=== PATIENT | female | born 1990 | race Caucasian/White ===

== ENCOUNTER 2022-05-17 00:09 | Observation (INO) | payer OTHER, SELFPAY ==
[2022-05-17] VITALS (8 sets, daily range): BP systolic 100–120; BP diastolic 66–82; PULSE 81–105; RESP 16–20; TEMP 36.4–37.7; O2SAT 93–98; BMI 25.8
--- NOTE | ~2022-05-17 | CT_ITS ---
EXAMINATION: CTA OF THE HEAD/NECK CLINICAL INFORMATION: Right-sided head and neck pain. Right face, arm, leg numbness. COMPARISON: None. TECHNIQUE: A routine non contrast head CT was performed followed by a 80 mL bolus of Omnipaque 350. Subsequent multidetector helical imaging was performed of the head and neck. Delayed post contrast imaging was also performed through the head. Multiplanar reformats and MIP were also obtained. Internal carotid artery stenoses are assessed in accordance with NASCET criteria unless otherwise indicated. This CT examination was performed using dose optimization techniques as appropriate, variously including the following: *Automated exposure control *Adjustment of mA and/or kV according to patient size (this includes techniques or standardized protocols for targeted exams where dose is matched to indication/reason for exam; i.e. extremities or head) *Use of iterative reconstruction technique DLP: 2119 mGy-cm. FINDINGS: CT HEAD: There is no evidence of acute intracranial hemorrhage or territorial infarction. No abnormal mass effect or midline shift is seen. Fowler to white matter differentiation is well preserved. No extra-axial fluid collections are identified. No suspicious leptomeningeal or parenchymal enhancement on the post-contrast images. No hydrocephalus. No significant volume loss. There is no abnormal attenuation within the brain parenchyma. The osseous structures and soft tissues are normal. The mastoid air cells and visualized portions of the paranasal sinuses are well aerated. CTA NECK: The aortic arch is of normal caliber and the origins of the great vessels are patent without evidence of significant stenosis. The cervical portion of the vertebral arteries are patent bilaterally. No luminal irregularities in the common carotid arteries and the carotid bifurcations are patent bilaterally. The cervical portion of the internal carotid arteries are of normal caliber. The laryngeal structures and pharyngeal mucosal spaces are unremarkable. The oral cavity appears normal. The parotid and submandibular glands are normal. No pathologically enlarged lymph nodes. The thyroid gland is unremarkable. The lung apices are clear without evidence of pneumothorax. Spinal alignment is maintained. CTA HEAD: The intradural portion of the vertebral arteries are of normal caliber. The basilar, superior cerebellar, and posterior communicating arteries are patent. The posterior, middle, and anterior cerebral arteries are of normal caliber without evidence of significant luminal irregularity. No definite intracranial aneurysms. CT/CT angio head neck IMPRESSION: 1. No acute vascular abnormality. No large vessel occlusion or flow-limiting stenosis. 2. No acute intracranial finding.
--- NOTE | ~2022-05-17 | MR_ITS ---
EXAMINATION: MR BRAIN WITH AND WITHOUT CONTRAST CLINICAL INFORMATION: Right neck pain, right face, arm, left leg numbness COMPARISON: CTA TECHNIQUE: MRI of the brain was obtained using routine sequences before and following administration of intravenous contrast. A total of 7.5 mL of Gadavist was administered intravenously. FINDINGS: Mildly motion degraded examination. No acute infarct. No acute intracranial hemorrhage or extra-axial fluid collection. The ventricles and sulci are normal in size and configuration without significant volume loss or hydrocephalus. White matter lesions to suggest underlying demyelinating disease. 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 No abnormal leptomeningeal enhancement. No significant mass effect or herniation pattern. Normal venous sinus and intracranial arterial flow voids. Normal appearance of the midline structures. The orbits are grossly unremarkable. Trace scattered mucosal disease throughout the paranasal sinuses. The mastoid air cells are well aerated. Normal marrow signal. MR/MR head/brain wo/w con IMPRESSION: No acute intracranial abnormality. No evidence for demyelinating disease. 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
--- NOTE | 2022-05-17 03:42 | PC.NURSE ---
Provider at bedside to evaluate pt.
--- NOTE | 2022-05-17 04:00 | ECG_ITS ---
Test Reason : WEAKNESS Blood Pressure : / mmHG Vent. Rate : 093 BPM Atrial Rate : 093 BPM P-R Int : 148 ms QRS Dur : 070 ms QT Int : 358 ms P-R-T Axes : 069 016 046 degrees QTc Int : 445 ms Sinus rhythm with Premature supraventricular complexes Possible Left atrial enlargement Low voltage QRS Borderline ECG No previous ECGs available Referred By: Kristofer Mcfarlane Electronically Signed By:ELBA CLANCY MD
--- NOTE | 2022-05-17 04:09 | ED.HA ---
HPI - Headache General Chief Complaint: Headache Stated Complaint: neck pain, right sided pain Time Seen by Provider: 05/17/22 03:41 Source: patient and family (, Raffy) Mode of arrival: ambulatory Limitations: no limitations History of Present Illness HPI Narrative: 31-year-old female who presents emergency department for evaluation of sudden onset of severe right-sided neck pain with right face numbness, right arm numbness and right leg numbness. The patient states that she was asleep. She then woke up at around 23:00 hours, set up and had a sudden onset of severe pain on the right side of her neck. She states that the right side of her face, arm and leg became numb She also states she had blurred vision in her right eye only. The neck pain was severe initial but then improved and is currently [id number].. She states that the numbness has persisted, she denies weakness. Patient states that she has been having intermittent right face, right upper extremity numbness with a tingly sensation in her right neck intermittently since August of 2021 . She was being worked up for multiple sclerosis. She states that she had negative MRIs of her head neck and spine. She had a spinal tap 2 weeks prior which was also negative. The spinal tap was complicated by a spinal headache. She states was seen at [facility] for spinal headache and was treated with Zofran, IV fluid and Toradol with no improvement her spinal headache. She was then treated with Fioricet orally and again with no improvement. She was then seen at [facility] ER and was given multiple narcotic medications IV with no improvement. She eventually had a spinal blood past which caused her spinal headaches to resolved. She states that she had no headache since the spinal blood patch. She denies headache with today symptoms. Related Data Allergies Allergy/AdvReac Type Severity Reaction Status Date / Time No Known Allergies Allergy Verified 05/17/22 01:33 Review of Systems Review of Systems: Yes all other systems are reviewed and are negative [facility] Past Medical History [facility] Narrative: Past medical history: None. Social history: She denies tobacco, alcohol and drug use. Social History Social History Advance Directives: No Advance Directives Information Provided: Yes Physical Exam Vital Signs: Vital Signs: Last Vital Signs Temp 98.2 F 05/17/22 02:36 Pulse 97 03/22/23 06:11 Resp 20 05/17/22 06:11 BP 100/66 05/17/22 06:11 Pulse Ox 98 05/17/22 06:11 O2 Del Method 05/17/22 06:11 BMI result Body Mass Index 25.8 Const: General: cooperative and no acute distress Limitations: no limitations HEENT: Head: Yes normal to inspection, Yes normocephalic and Yes atraumatic Ears: external ears normal General nose exam: Normal external nose present Face and sinus: Yes normal facial exam Mouth: Normal oral and palatal mucosa present Throat: Yes posterior oropharynx normal Eyes: General: appearance normal, both eyes and all related structures Neck: Neck: Yes normal visual inspection, Yes no lymphadenopathy, Yes trachea midline and Yes supple Chest: Chest palpation & inspection: normal inspection of the chest and normal palpation of entire chest wall Resp: Effort & Inspection: normal respiratory effort and able to speak in complete sentences Auscultation: clear to auscultation bilaterally Cardio: Rate: regular rate Rhythm: regular rhythm Heart sounds: S1 normal heart sound present, S2 normal heart sound present and no murmurs GI: Inspection: Yes normal to inspection Palpation (GI): Soft to palpation, nontender and no guarding Auscultation: normal bowel sounds : General: Yes no CVA tenderness Back/Spine/Pelvis: Back: no CVA tenderness Skin: General skin exam: no rashes or lesions noted Neuro: Other: Patient is awake, alert oriented to person place, speech is normal. Patient has no facial droop, she does have diminished light touch sensation on the right side of her face and neck compared to the left. She also has diminished light touch sensation to her right upper and lower extremity compared to the left. Patient's strength is 5/5 and symmetric. Extrem: General: Yes normal to inspection Psych: Appearance: grossly normal Speech and movement: Normal speech and movement present Affect: normal affect Attitude: cooperative Thought process: Normal thought process present Thought content: Normal thought content present NIH Stroke Scale Internal: Other (At the time of my evaluation) Level of Consciousness: Alert Level of Consciousness Questions: Answers both questions correctly Level of Consciousness Commands: Performs both tasks correctly Best Gaze: Normal Visual: No visual loss Facial Palsy: Normal Motor Arm (Right): No drift Motor Arm (Left): No drift Motor Leg (Right): No drift Motor Leg (Left): No drift Limb Ataxia: Absent Sensory: Mild to moderate sensory loss Best Language: No aphasia Dysarthia: Normal Extinction and Inattention: No abnormality Score: 1 Medications Administered Discontinued Medications Generic Name Dose Route Start Last Admin Trade Name Salvatore PRN Reason Stop Dose Admin Aspirin 162 mg 05/17/22 06:53 05/17/22 07:17 Aspirin 81 Mg Tab.Chew PO 05/17/22 06:54 162 mg ONCE STA Administration Diphenhydramine HCl 50 mg 05/17/22 03:59 05/17/22 04:27 Diphenhydramine Hcl 50 Mg/Ml Vial IVPUSH 05/17/22 04:00 50 mg ONCE STA Administration Sodium Chloride 1,000 mls @ 999 mls/hr 05/17/22 03:59 05/17/22 07:06 Ns IV 05/17/22 04:59 Infused .Q1H1M STA Infusion Iohexol 70 ml 05/17/22 05:40 05/17/22 05:40 Iohexol 350 Mg/Ml 100 Ml Infus..Btl IV 05/17/22 05:41 70 ml ONCE ONE Administration Ketorolac Tromethamine 15 mg 05/17/22 03:59 05/17/22 04:27 Ketorolac Tromethamine 15 Mg/Ml Vial IVPUSH 05/17/22 04:00 15 mg ONCE STA Administration Metoclopramide HCl 10 mg 05/17/22 03:59 05/17/22 04:27 Metoclopramide Hcl 10 Mg/2 Ml Vial IVPUSH 05/17/22 04:00 10 mg ONCE STA Administration Medical Decision Making Medical Decision Making [facility] Narrative: 31-year-old female who presents emergency department for evaluation of severe right-sided neck pain that woke her up from sleep associated with right eye blurred vision, right head, neck, upper and lower extremity numbness with no weakness. The patient has been having right face, neck and arm numbness which is been worked up for MS by her neurologist with no significant findings. Patient did have a spinal headache over the past 2 weeks which eventually resolved after she had spinal blood patch. Patient's symptoms today were not associated with the headache. Physical exam findings did reveal diminished light touch to her face, neck, right upper extremity and right lower extremity with no weakness. I did order laboratory evaluation to include CBC, CMP, PT/INR, PTT, TSH, quantitative beta-hCG, COVID, influenza, RSV, urinalysis. CT scan of the brain without IV contrast was ordered. I also ordered a CT angiogram head and neck to rule out dissection carotid arteries or retrievable blood clot. It is possible the patient may have a complex migraine therefore I ordered Benadryl 50 mg IV, Reglan 10 mg IV and Toradol 15 mg IV. She was also ordered to get normal saline IV x1 L. 0641: My interpretation of the patient's laboratory evaluation is as follows: CBC was normal. Coags were normal. CMP normal. Quantitative beta-hCG below detectable limits. TSH normal. COVID-19, influenza and RSV negative. CT brain was negative. CT angiogram of the head and neck was also unremarkable. The patient states that her symptoms did improve with the above treatment. She states that the right-sided neck pain has completely resolved, she states the numbness in her right arm and right leg has improved but is still present. At this time, I am concerned that the patient may have had a stroke verses a new TIA as the cause of her symptoms and should be admitted for further workup. I will discuss admission with the covering hospitalist. I did order aspirin 162 mg orally. 0730: I did discuss over tiger text the patient's admission with Dr. Vicente. I did order an MRI with and without contrast to rule out stroke verses multiple sclerosis. Differential Diagnosis Differential diagnosis includes was not limited to acute stroke, complex migraine, carotid dissection Consult Healthcare Provider Management of the patient was discussed with: Hospitalist Lab Data [facility] Lab Attestation statement: I reviewed the patient's lab results. Please see [facility] for discussion 05/17/22 04:22 05/17/22 04:22 Labs: Lab Results 05/17/22 05/17/22 05/17/22 Range/Units 04:22 04:22 04:22 WBC 9.3 (4.8-10.8) X10*3/uL RBC 4.94 (4.20-5.50) X10*6/uL Hgb 12.8 (12.0-16.0) g/dl Hct 39.9 (37.0-47.0) % MCV 80.8 (80.0-98.0) fL MCH 25.9 L (27.0-33.0) pg MCHC 32.1 (31.0-35.0) g/dl RDW 12.8 (11.0-16.0) % Plt Count 267 (160-400) X10*3/uL MPV 9.9 (9.4-12.3) fL Immature Gran % (Auto) 0.3 (0.0-0.4) % Neut % (Auto) 59.0 (45-73) % Lymph % (Auto) 33.8 (20-40) % [place] % (Auto) 4.9 (2-11) % Eos % (Auto) 1.7 (0-4) % Baso % (Auto) 0.3 (0-2) % Lymph # (Auto) 3.1 (1.2-4.9) X10*3/uL Marion # (Auto) 0.5 (0.1-1.2) X10*3/uL Eos # (Auto) 0.2 (0.0-0.4) X10*3/uL Baso # (Auto) 0.0 (0.0-0.2) X10*3/uL Abs Immat Gran (auto) 0.03 (0.00-0.03) X10*3/uL Absolute Neuts (auto) 5.5 (2.0-8.3) x10*3/uL Absolute Nucleated RBC 0.000 (0.0-0.012) X10*3/uL Nucleated RBC % (auto) 0.0 (0.0-0.2) /100WBC PT 11.6 (10.0-13.1) SEC INR 1.0 (0.9-1.1) APTT 31.4 (26.0-36.4) SEC Sodium 143 (135-145) mmol/L Potassium 4.1 (3.3-5.1) mmol/L Chloride 106 (96-108) mmol/L Carbon Dioxide 27 (22-29) mmol/L Anion Gap 14 (12-20) BUN 12 (9-16) mg/dL Creatinine 0.77 (0.5-1.4) mg/dL Estim Creat Clear Calc 105.9 Estimated GFR > 60 Random Glucose 98 (60-115) mg/dL Calcium 9.5 (8.4-10.2) mg/dL Total Bilirubin 0.4 (0.0-1.0) mg/dL AST 14 (5-31) U/L ALT 14 (0-31) U/L Alkaline Phosphatase 108 (39-117) U/L Total Protein 7.5 (6.5-8.0) g/dL Albumin 4.5 (3.5-5.0) g/dL Lipase 39 (8-78) U/L TSH (0.32-4.0) uIU/mL Beta HCG, Quant < 2 mIU/mL Influenza Type A (PCR) (Negative) Influenza Type B (PCR) (Negative) RSV RNA Qual (PCR) (Negative) SARS-CoV-2 RNA (RT-PCR) (Negative) 05/17/22 05/17/22 Range/Units 04:22 04:22 WBC (4.8-10.8) X10*3/uL RBC (4.20-5.50) X10*6/uL Hgb (12.0-16.0) g/dl Hct (37.0-47.0) % MCV (80.0-98.0) fL MCH (27.0-33.0) pg MCHC (31.0-35.0) g/dl RDW (11.0-16.0) % Plt Count (160-400) X10*3/uL MPV (9.4-12.3) fL Immature Gran % (Auto) (0.0-0.4) % Neut % (Auto) (45-73) % Lymph % (Auto) (20-40) % Marion % (Auto) (2-11) % Eos % (Auto) (0-4) % Baso % (Auto) (0-2) % Lymph # (Auto) (1.2-4.9) X10*3/uL Marion # (Auto) (0.1-1.2) X10*3/uL Eos # (Auto) (0.0-0.4) X10*3/uL Baso # (Auto) (0.0-0.2) X10*3/uL Abs Immat Gran (auto) (0.00-0.03) X10*3/uL Absolute Neuts (auto) (2.0-8.3) x10*3/uL Absolute Nucleated RBC (0.0-0.012) X10*3/uL Nucleated RBC % (auto) (0.0-0.2) /100WBC PT (10.0-13.1) SEC INR (0.9-1.1) APTT (26.0-36.4) SEC Sodium (135-145) mmol/L Potassium (3.3-5.1) mmol/L Chloride (96-108) mmol/L Carbon Dioxide (22-29) mmol/L Anion Gap (12-20) BUN (9-16) mg/dL Creatinine (0.5-1.4) mg/dL Estim Creat Clear Calc Estimated GFR Random Glucose (60-115) mg/dL Calcium (8.4-10.2) mg/dL Total Bilirubin (0.0-1.0) mg/dL AST (5-31) U/L ALT (0-31) U/L Alkaline Phosphatase (39-117) U/L Total Protein (6.5-8.0) g/dL Albumin (3.5-5.0) g/dL Lipase (8-78) U/L TSH 0.86 (0.32-4.0) uIU/mL Beta HCG, Quant mIU/mL Influenza Type A (PCR) NEGATIVE (Negative) Influenza Type B (PCR) NEGATIVE (Negative) RSV RNA Qual (PCR) NEGATIVE (Negative) SARS-CoV-2 RNA (RT-PCR) NEGATIVE (Negative) Independent Interpretation I performed an independent interpretation of an: EKG Interpretation: My independent interpretation of the patient's 12 EKG done at 04:25 hours is as follows: Normal sinus rhythm with occasional PAC, rate of 93, normal VA interval, QRS duration QTC interval no ST segment elevation, no ST segment depression inverted T-wave in V1. Discharge Plan Discharge Patient Disposition: Admitted As Inpatient
[2022-05-17] MEDS: diphenhydrAMINE HCL 50 MG/ML VIAL IVPUSH (04:27)
[2022-05-17] MEDS: Metoclopramide HCl 10 MG/2 ML VIAL IVPUSH (04:27)
[2022-05-17] MEDS: Ketorolac Tromethamine 15 MG/ML VIAL IVPUSH (04:27)
[2022-05-17] MEDS: 0.9 % Sodium Chloride 1,000 ML 999 ML IV (04:27)
[2022-05-17 04:28] LABS: Basophils Percent Auto 0.3 % (0-2); Eosinophils Absolute Auto 0.2 X10*3/uL (0.0-0.4); Eosinophils Percent Auto 1.7 % (0-4); Hematocrit 39.9 % (37.0-47.0); Hemoglobin 12.8 g/dl (12.0-16.0); Imm Gran Abs Auto 0.03 X10*3/uL (0.00-0.03); Imm Gran Pct Auto 0.3 % (0.0-0.4); Lymphocytes Absolute Auto 3.1 X10*3/uL (1.2-4.9); Lymphocytes Percent Auto 33.8 % (20-40); MANUAL DIFF FLAG NO; Mean Corpuscular HGB Conc 32.1 g/dl (31.0-35.0); Mean Corpuscular Hemoglobin 25.9 pg (27.0-33.0); Mean Corpuscular Volume 80.8 fL (80.0-98.0); Mean Platelet Volume 9.9 fL (9.4-12.3); Monocytes Absolute Auto 0.5 X10*3/uL (0.1-1.2); Monocytes Percent Auto 4.9 % (2-11); Neutrophils Absolute Auto 5.5 x10*3/uL (2.0-8.3); Platelet Count 267 X10*3/uL (160-400); Red Blood Count 4.94 X10*6/uL (4.20-5.50); Red Cell Distribution Width 12.8 % (11.0-16.0); White Blood Count 9.3 X10*3/uL (4.8-10.8)
[2022-05-17 04:38] LABS: Prothrombin Time 11.6 SEC (10.0-13.1)
[2022-05-17 04:41] LABS: Partial Thromboplastin Time 31.4 SEC (26.0-36.4)
[2022-05-17 05:03] LABS: Alanine Aminotransferase 14 U/L (0-31); Albumin Level 4.5 g/dL (3.5-5.0); Alkaline Phosphatase 108 U/L (39-117); Anion Gap 14 (12-20); Aspartate Amino Transferase 14 U/L (5-31); Bilirubin Total 0.4 mg/dL (0.0-1.0); Blood Urea Nitrogen 12 mg/dL (9-16); Calcium 9.5 mg/dL (8.4-10.2); Carbon Dioxide 27 mmol/L (22-29); Chloride 106 mmol/L (96-108); Creatinine Clr Calc Pharmacy 105.9; Estimated Glomerular Filt Rate > 60; Glucose Random 98 mg/dL (60-115); HCG Quantitative < 2 mIU/mL; Lipase 39 U/L (8-78); Potassium 4.1 mmol/L (3.3-5.1); Sodium 143 mmol/L (135-145); Total Protein 7.5 g/dL (6.5-8.0)
[2022-05-17 05:05] LABS: Influenza A PCR NEGATIVE (Negative); Influenza B PCR NEGATIVE (Negative); Resp Syncy Virus RNA Qual PCR NEGATIVE (Negative); SARS COV2 PCR INHOUSE NEGATIVE (Negative)
--- NOTE | 2022-05-17 05:16 | PC.NURSE ---
Pt in imaging at this time.
[2022-05-17 05:17] LABS: TSH reflex Free T4 0.86 uIU/mL (0.32-4.0)
[2022-05-17] MEDS: iohexoL 350 MG/ML 100 ML INFUS..BTL 70 ML IV (05:40)
--- NOTE | 2022-05-17 07:10 | PC.NURSE ---
Report to Vi PICKARD for continued care.
[2022-05-17] MEDS: Aspirin 81 MG TAB.CHEW 162 MG PO (07:17)
--- NOTE | 2022-05-17 11:18 | P.HPHOSP_ITS ---
History of Present Illness Date of Service: 05/17/22 Attending physician on admission: Radha Qiu Chief Complaint: Right-sided numbness and neck pain Pt is a 31-year-old female with a PMH significant for?mild intermittent asthma, anxiety, and migraines who presents to the ED with?sudden onset right-sided neck pain and right-sided upper and lower extremity numbness. Pt states she was woken from sleep at 23:00 last night with a severe, sharp pain in her right neck. She then felt a lazaro of needles into the right side of her head. Severe pain lasted for 5-6 minutes until it slowly started to dissipate. Associated with a few seconds of right-sided blurriness. Patient states that the feeling of sharp needles slowly spread to her right hand and then trickled into her legs. No as sociated weakness. States she feels like she had any few moments of palpitations. Pt states she has never experienced similar symptoms. Pt has been experiencing intermittent numbness in face and upper extremities primarily on the right side since August 2021. It has never extended to her legs before. Pt sees a neurologist who has been working her up for MS with negative results so far. Patient had an MRI of neck and spine in November 2021 at [facility] and another MRI brain and head in February of 2022 at [facility]. Results have not been reviewed but apparently negative. Patient also had a lumbar puncture at [facility] 2 weeks ago with results that were apparently unremarkable. After lumbar puncture murali deal experienced severe migraine with associated N/V for which conventional analgesics were not effective. Pt received an epidural blood patch at [facility] last week which provided relief. Pt currently without pain. Denies right-sided weakness. No fever, chills, nausea, vomiting, abdominal pain. No changes in bowel or bladder habits. Denies chest pain/pressure. No shortness of breath. In the ED pt was tachycardic up to 105. Labs were unremarkable. CTA of head and neck showed no acute intracranial finding with no vascular abnormality?nor large vessel occlusion or flow-limiting stenosis. MRI of head/brain wo/w contrast with no acute intracranial abnormality and no evidence for demyelinating disease. 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 EKG showed sinus rhythm with premature supraventricular complexes. Pt was treated with IVF, ketorolac, metoclopramide, and diphenhydramine. Pt will be admitted to the hospital for observation for right-sided neck/head pain and right-sided numbness of upper and lower extremiti es. Review of Systems Review of Systems: Right-sided neck pain Right-sided headache Right-sided upper and lower extremity numbness Brief period of palpitations Brief period of blurriness in her right eye Denies right-sided weakness No chest pain/pressure Shortness of breath Yes all other systems are reviewed and are negative [facility] Social History Advance Directives: No Advance Directives Information Provided: Yes Meds Allergies Allergy/AdvReac Type Severity Reaction Status Date / Time No Known Allergies Allergy Verified 05/17/22 01:33 Home Medications Medication Instructions Recorded Confirmed Last Taken Type sertraline 25 mg tablet 12.5 mg PO DAILY 05/17/22 05/17/22 05/16/22 History Physical Exam Vital Signs and Narrative: Vital Signs: Last Vital Signs Temp 98.3 F 05/17/22 07:58 Pulse 83 05/17/22 07:58 Resp 17 05/17/22 07:58 BP 113/74 05/17/22 07:58 Pulse Ox 98 05/17/22 07:58 O2 Del Method 05/17/22 07:58 BMI result Body Mass Index 25.8 Constitutional: Alert, in no acute distress. Mental Status: Oriented to person, place and time. Eyes: Pupils are equal, round, and reactive to light. Ear, Nose, and Throat: Oropharynx clear, mucous membranes moist. Ears and nose without deformities. Trachea midline. Respiratory: Clear to auscultation bilaterally. No wheezing, rales, or rhonchi. Cardiovascular: S1, S2 regular. No murmurs, rubs, or gallops. Gastrointestinal: Abdomen soft, non-tender, non-distended. Normal bowel sounds. Neurologic: Cranial nerves II-XII are grossly intact bilaterally. Moves all extremities spontaneously, 5/5strength of upper and lower extremities. Mild sensory deficit to light touch of right-side of face and right upper extremity. Skin: No rashes or lesions noted. Musculoskeletal: No cyanosis or clubbing. Extremities: No edema. Psychiatric: Normal mood and affect. Results Labs 05/17/22 04:22 05/17/22 04:22 Labs: Laboratory Results - last 24 hr 05/17/22 05/17/22 05/17/22 04:22 04:22 04:22 MCV 80.8 MCH 25.9 L MCHC 32.1 RDW 12.8 Plt Count 267 MPV 9.9 Immature Gran % (Auto) 0.3 Neut % (Auto) 59.0 Lymph % (Auto) 33.8 [place] % (Auto) 4.9 Eos % (Auto) 1.7 Baso % (Auto) 0.3 Lymph # (Auto) 3.1 [place] # (Auto) 0.5 Eos # (Auto) 0.2 Baso # (Auto) 0.0 Abs Immat Gran (auto) 0.03 Absolute Neuts (auto) 5.5 Absolute Nucleated RBC 0.000 Nucleated RBC % (auto) 0.0 PT 11.6 INR 1.0 APTT 31.4 Anion Gap 14 Estim Creat Clear Calc 105.9 Estimated GFR > 60 Random Glucose 98 Calcium 9.5 Total Bilirubin 0.4 AST 14 ALT 14 Alkaline Phosphatase 108 Total Protein 7.5 Albumin 4.5 Lipase 39 TSH Beta HCG, Quant < 2 Influenza Type A (PCR) Influenza Type B (PCR) RSV RNA Qual (PCR) SARS-CoV-2 RNA (RT-PCR) 05/17/22 05/17/22 04:22 04:22 MCV MCH MCHC RDW Plt Count MPV Immature Gran % (Auto) Neut % (Auto) Lymph % (Auto) [place] % (Auto) Eos % (Auto) Baso % (Auto) Lymph # (Auto) [place] # (Auto) Eos # (Auto) Baso # (Auto) Abs Immat Gran (auto) Absolute Neuts (auto) Absolute Nucleated RBC Nucleated RBC % (auto) PT INR APTT Anion Gap Estim Creat Clear Calc Estimated GFR Random Glucose Calcium Total Bilirubin AST ALT Alkaline Phosphatase Total Protein Albumin Lipase TSH 0.86 Beta HCG, Quant Influenza Type A (PCR) NEGATIVE Influenza Type B (PCR) NEGATIVE RSV RNA Qual (PCR) NEGATIVE SARS-CoV-2 RNA (RT-PCR) NEGATIVE Imaging Radiologist's Impressions: Impressions Head/Neck CTA 05/17/22 05:44 IMPRESSION: 1. No acute vascular abnormality. No large vessel occlusion or flow-limiting stenosis. 2. No acute intracranial finding. Assessment and Plan (1) Neck pain on right side: Status: Acute (2) Right sided numbness: Status: Acute Plan Pt is a 31-year-old female with a PMH significant for?mild intermittent asthma, anxiety, and migraines who presents to the ED with?sudden onset right-sided neck pain and right-sided upper and lower extremity numbness. Pt will be admitted to the hospital for observation for right-sided neck/head pain and right-sided numbness of upper and lower extremities. Right-sided pain and numbness Unclear etiology Labs unremarkable CTA negative for acute intracranial finding, vascular abnormality, or large vessel occlusion or flow-limiting stenosis MRI negative for acute intracranial abnormality and with no evidence for demyelinating disease Neurology consult Admit to telemetry Mild intermittent asthma Not in acute exacerbation Continue home inhaler Anxiety Continue sertraline Full Code Attending:?Dr. Qiu DVT Prophylaxis: Pt ambulatory Pt will be admitted to the hospital for observation for right-sided neck/head pain and right-sided numbness of upper and lower extremities. Time Spent With Patient Time: Total time managing care of this patient today ____ minutes. Quality Stroke Does the patient have a stroke diagnosis?: No VTE Prior VTE?: No VTE Risk Level:: Medical - low VTE Device Contraindication: Treatment Not Indicated VTE Drug Contraindication: Treatment Not Indicated
--- NOTE | 2022-05-17 13:09 | MHC.EDTECH ---
Per provider records requested from [facility] for MRI and recent visits pertaining to LP awaiting records
--- NOTE | 2022-05-17 13:33 | PHA.MEDREC ---
Pharmacy Consult ? Medication Reconciliation Pharmacy has completed the medication reconciliation. Pt states she stopped all medications except for 12.5 mg sertraline daily
--- NOTE | 2022-05-17 16:33 | P.EN_ITS ---
Event Note Date of Service: 05/17/22 Event Note: This patient is seen and examined with APC. Patient seen and examined-came to the hospital because of Right-sided pain and numbness. Patient says that symptoms are improved significantly now has some little numbness otherwise seems to be feeling better. Lab imaging, EKG reviewed. CBC BMP seems fine , EKG also fine CTA and MRI head seems fine to Physical exam and assessment and plan coordinated in APCs note, Agree with the plan in addition: ?Right-sided pain and numbness. Get records from [facility] Neurology evaluation. Time Spent With Patient Time: Total time managing care of this patient today ____ minutes.
[2022-05-17] MEDS: 0.9 % Sodium Chloride Flush 3 ML SYRINGE IVFLUSH ×2 (17:04→22:40)
[2022-05-18] VITALS: BP 92/57; PULSE 79; RESP 16; TEMP 37.1; O2SAT 98
[2022-05-18 03:17] VITALS: BP 95/57; PULSE 72; RESP 16; TEMP 36.8; O2SAT 99
[2022-05-18 08:00] VITALS: BP 115/93; PULSE 98; RESP 18; TEMP 36.8; O2SAT 97
[2022-05-18] MEDS: Sertraline HCL 25 MG TABLET 12.5 MG PO (08:52)
[2022-05-18] MEDS: 0.9 % Sodium Chloride Flush 3 ML SYRINGE IVFLUSH (08:53)
--- NOTE | 2022-05-18 08:53 | MHC.CM.PN ---
[facility] DELIVERED PT LIVES IN A [facility] WITH AND CHILDREN. INDEPENDENT AT BASELINE, EMPLOYED. NO HCP BUT WILLING TO COMPLETE ONE. +COVID VAX X2 WITH [facility]. PCP DR. Dave RICHARDSON AT [facility]. DP: HOME, NO SERVICES ANTICIPATED. FAMILY WILL TRANSPORT. CM WILL CONTINUE TO FOLLOW.
[2022-05-18 09:50] LABS: Appearance Urine Cloudy; Color Urine RED; Glucose Urine UA Negative (Negative); Leukocyte Esterase Urine Negative (Negative); Nitrite Urine Negative (Negative); PH 6.5 (5.0-9.0); UMIC TRIGGER UACC YES; Urine Blood Large (3+) (Negative); Urine Ketones Negative (Negative); Urine Protein Trace mg/dL (Neg-Trace)
[2022-05-18 09:51] LABS: Specific Gravity - Urine 1.025 (1.005-1.025)
[2022-05-18 09:59] LABS: RBC Urine >20 /HPF (0-2); WBC Urine 0-5 /HPF (0-5)
[2022-05-18 10:00] LABS: Bacteria Urine Trace (None Seen); Hyaline Casts Urine 0-2 /LPF (0-2)
--- NOTE | 2022-05-18 11:30 | P.CNNE_ITS ---
History of Present Illness Data of Consult Service Date: 05/18/22 Primary Care Provider: Unknown Physician HPI Reason for consult: Headache and numbness 31-year-old female with a PMH significant for?mild intermittent asthma, anxiety, and migraines who presents to the ED with?sudden onset right-sided neck pain and right-sided upper and lower extremity numbness.? She said that the feeling started in the neck area and took a minute or 2 to extend to the whole right side. Now she was feeling better. She was having wanted to headaches in a month. Review of Systems Review of Systems: No recent cold or flu-like illness PMFSH Social History Social History Household Members: Significant Other Housing: House Do you presently have visiting nurse or other home services: No Patient Tobacco Use Status: Never used Tobacco Smoked in Last 30 Days: No Patient Interested in Nicotine Replacement: No Patient Given Instructions on How to Stop Smoking: No Second Hand Smoke Exposure: No Use of substances other than those prescribed or required for medical reasons: No Currently Displaying Signs/Symptoms of Drug Intoxication Withdrawal: No Any prior treatment program specific to substance use: No Have you been hit, kicked, punched, or otherwise hurt by someone within the past year? If so, by whom?: No Do you feel safe in your current relationship?: Yes Is there a partner from a previous relationship who is making you feel unsafe now?: No Are you made to feel afraid or neglected: No Advance Directives: No Advance Directives Information Provided: Yes Do you have thoughts of harming others: None Do you have a plan to hurt others: No Plan Recently lost weight without trying: No Eating poorly because of decreased appetite: No Nutrition Risks: No Nutritional Risk Patient : No : No Poor oral hygiene: No service: No Current occupational status: employed Meds Allergies Allergy/AdvReac Type Severity Reaction Status Date / Time No Known Allergies Allergy Verified 05/17/22 01:33 Active Medications: Current Medications Acetaminophen (Acetaminophen 325 Mg Tablet) 650 mg PO Q6H PRN PRN Reason: Pain, Mild (Pain Scale 1-3) Docusate Sodium (Docusate Sodium 100 Mg Capsule) 100 mg PO DAILY PRN PRN Reason: Constipation Ondansetron HCl (Ondansetron Hcl 4 Mg/2 Ml Vial) 4 mg IVPUSH Q8H PRN PRN Reason: Nausea and Vomiting Pharmacy Consult (Consult Rx Perform Med Rec) 1 each MISCELLANE ONCE PRN PRN Reason: Consult order Sertraline HCl (Sertraline Hcl 25 Mg Tablet) 12.5 mg PO DAILY [facility] Last Admin: 05/18/22 08:52 Dose: 12.5 mg Sodium Chloride (0.9 % Sodium Chloride Flush 3 Ml Syringe) 3 ml IVFLUSH QSHIFT [facility] Last Admin: 05/18/22 08:53 Dose: 3 ml Home Medications Medication Instructions Recorded Confirmed Last Taken Type sertraline 25 mg tablet 12.5 mg PO DAILY 05/17/22 05/17/22 05/16/22 History Physical Exam Vital Signs: Vital Signs: Last Vital Signs Temp 98.3 F 05/18/22 08:00 Pulse 98 05/18/22 08:00 Resp 18 05/18/22 08:00 BP 115/93 H 05/18/22 08:00 Pulse Ox 97 05/18/22 08:00 O2 Del Method Room Air 05/18/22 08:00 BMI result Body Mass Index 25.8 Neuro: Other: She is alert and awake with normal spontaneity of speech fluency comprehension and anxious affect. Visual kline are full. Face is symmetrical. There is no focal weakness. Deep tendon reflexes are trace with flexor plantars. Results Labs 05/17/22 04:22 05/17/22 04:22 Labs: Urine 05/18/22 Range/Units 09:15 Urine Color RED Urine Appearance Cloudy Urine pH 6.5 (5.0-9.0) Ur Specific [place] 1.025 (1.005-1.025) Urine Protein Trace (Neg-Trace) mg/dL Urine Glucose (UA) Negative (Negative) mg/dL Noncontrast MRI of brain did not reveal any significant abnormality. CTA of brain and neck were unremarkable. Assessment and Plan (1) Migraine equivalent syndrome: Status: Acute Young woman with combination of migraine and associated symptoms and anxiety. She was reassured and educated. At this time, as she was not having frequent headaches, p.r.n. sumatriptan 50 mg is recommended (2) Anxiety disorder: Status: Acute Time Spent With Patient Time: Total time managing care of this patient today ____ minutes. Procedures Date of Service Date of Service: 05/18/22
[2022-05-18 12:00] VITALS: BP 113/89; PULSE 92; RESP 18; O2SAT 98
--- NOTE | 2022-05-18 12:33 | MHC.CM.PN ---
DP: PT HAS BEEN MEDICALLY CLEARED FOR DC HOME, NO SERVICES. FAMILY WILL TRANSPORT
--- NOTE | 2022-05-18 17:30 | P.DS_ITS ---
DS: Providers Provider Date of Service: 05/18/22 Date of admission: 05/17/22 13:43 Date of discharge: 05/18/22 Primary care physician: Unknown Physician Consults: 05/17/22 13:43 Consult to Neurology Routine Consulting Provider: [facility] Reason for consultation: Sudden-onset right-sided pain and numbness DS: Diagnosis Discharge Diagnosis (1) Migraine equivalent syndrome: Status: Acute (2) Anxiety disorder: Status: Acute DS: Summary Hospital Course Hospital Course: 31-year-old female with a PMH significant for?mild intermittent asthma, anxiety, and migraines who presents to the ED with?sudden onset right-sided neck pain and right-sided upper and lower extremity numbness. Pt states she was woken from sleep at 23:00 last night with a severe, sharp pain in her right neck.? She then felt a lazaro of needles into the right side of her head.? Severe pain lasted for 5-6 minutes until it slowly started to dissipate.? Associated with a few seconds of right-sided blurriness.? Patient states that the feeling of sharp needles slowly spread to her right hand and then trickled into her legs. No associated weakness.? States she feels like she had any few moments of palpitations.? Pt states she has never experienced similar symptoms. Pt has been experiencing intermittent numbness in face and upper extremities primarily on the right side since August 2021.? It has never extended to her legs before. Pt sees a neurologist who has been working her up for MS with negative results so far.? Patient had an MRI of neck and spine in November 2021 at [facility] and another MRI brain and head in February of 2022 at [facility].? Results have not been reviewed but apparently negative.? Patient also had a lumbar puncture at [facility] 2 weeks ago with results that were apparently unremarkable.? After lumbar puncture patient experienced severe migraine with associated N/V for which conventional analgesics were not effective. Pt received an epidural blood patch at [facility] last week which provided relief. Pt currently without pain. Denies right-sided weakness. No fever, chills, nausea, vomiting, abdominal pain.? No changes in bowel or bladder habits.? Denies chest pain/pressure.? No shortness of breath. In the ED pt was tachycardic up to 105. Labs were unremarkable. CTA of head and neck showed no acute intracranial finding with no vascular abnormality?nor large vessel occlusion or flow-limiting stenosis. MRI of head/brain wo/w contrast with no acute intracranial abnormality and no evidence for demyelinating disease.? 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 EKG? showed sinus rhythm with premature supraventricular complexes. Pt was treated with IVF, ketorolac, metoclopramide, and diphenhydramine. Pt will be admitted to the hospital for observation for right-sided neck/head pain and right-sided numbness of upper and lower extremities. hospital course: Patient came with the symptoms from neck pain,numbness, some headaches: CT head and MRI seems to be fine-seen by Neurology symptoms were thought to be possible related to migraine. Sumatriptan p.r.n. added. Follow-up outpatient with PCP. Plan: P.r.n. sumatriptan for migraine headaches Follow-up with PCP. Consider outpatient neuro evaluation if continue to have symptoms. Assessment and plan coordination time spent 50 minute, discussed with patient detail and she understand and in agreement with above plan. Time Spent with Patient Time attestation: Total time managing care of this patient today ____ minutes. Discharge coordination time: Greater than 30 minutes Quality: Safe Use of Opioids Does Pt have an Active Cancer Diagnosis on the Problem List?: No Quality: Stroke Does the patient have a stroke diagnosis?: No Physical Exam Vital Signs: Vital Signs: Last Vital Signs Temp 98.3 F 05/18/22 08:00 Pulse 92 05/18/22 12:00 Resp 18 05/18/22 12:00 BP 113/89 05/18/22 12:00 Pulse Ox 98 05/18/22 12:00 O2 Del Method Room Air 05/18/22 08:00 BMI result Body Mass Index 25.8 Appearance: Alert.? Oriented X3.? not in distress.? Eyes: Pupils equal, round and reactive to light.? Sclera nonicteric.? ENT: Pharynx normal.? Moist mucous membranes. cvs: rrr, [id number] . res: clear to auscultation ,no rhonchii or wheezing abd: no rebound or guarding ,nt, bs present. ext pulses present , no cyanosis. neuro: axo3 , nonfocal. DS: Data Data Completed and Pending Labs on day of discharge: Laboratory Results - last 24 hr 05/18/22 09:15 Urine Color RED Urine Appearance Cloudy Urine pH 6.5 Ur Specific [place] 1.025 Urine Protein Trace Urine Glucose (UA) Negative Urine Ketones Negative Urine Blood Large (3+) H Urine Nitrite Negative Ur Leukocyte Esterase Negative Urine RBC >20 H Urine WBC 0-5 Ur Squamous Epith Cells 6-10 Urine Bacteria Trace Hyaline Casts 0-2 Imaging Chest x-ray: Radiologist's impression: ITS Impressions Head/Neck CTA 05/17/22 05:44 IMPRESSION: 1. No acute vascular abnormality. No large vessel occlusion or flow-limiting stenosis. 2. No acute intracranial finding. Brain MRI 05/17/22 11:42 IMPRESSION: No acute intracranial abnormality. No evidence for demyelinating disease. 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 Discharge Plan Discharge Patient Disposition: Home, Self-Care Discharge Diagnosis: neck pain,Migraine equivalent syndrome. Referrals: Physician,Unknown J [Primary Care Provider] - 1 Week Discharge Medications: New sumatriptan succinate 50 mg Tablet 50 mg PO DAILY PRN (Reason: migrane) Qty: 10 0RF Continued sertraline 25 mg tablet 12.5 mg PO DAILY Discharge Orders: Discharge Order (Routine); Ordered 05/18/22 Ordered By: Radha Qiu Diet: Advance to usual diet Activity on Discharge: As tolerated Stand Alone Forms: Patient Portal Discharge page Care Plan Goals: Patient came with the symptoms from neck pain some headaches: CT head and MRI seems to be fine-seen by Neurology symptoms were thought to be possible related to migraine. Sumatriptan p.r.n. added. Follow-up outpatient with PCP. Health Concerns: As above. Plan of Treatment: As above. Assessment: As above. Patient Instructions: Migraine Headache (ED) Discharge Date/Time: 05/18/22 16:06
== END 2022-05-18 16:06 | disposition home or self-care (01) ==
LOC: HO.ED 06:58 → HO.EDOVER 13:58 → HO.IMC 14:05
PROVIDERS: Admitting Provider Student in an Organized Health Care Education/Training Program; Emergency Provider Emergency Medicine Emergency Medical Services; PCP Internal Medicine; Visit Provider Internal Medicine
DX: M54.2 Cervicalgia (principal); G43.109 Migraine with aura, not intractable, without status migrainosus; R20.0 Anesthesia of skin; F41.9 Anxiety disorder, unspecified; Z20.822 Contact with and (suspected) exposure to COVID-19; Z20.828 Contact with and (suspected) exposure to other viral communicable diseases; H53.8 Other visual disturbances; R06.02 Shortness of breath; I49.3 Ventricular premature depolarization; R00.0 Tachycardia, unspecified; J45.909 Unspecified asthma, uncomplicated; Z79.899 Other long term (current) drug therapy
CPT/HCPCS: 0241U; 36415; 70496; 70498; 70553; 80053; 81001; 83690; 84443; 84702; 85025; 85610; 85730; 93005; 96361; 96374; 96375; 99222; 99285; A9585; J1200; J1885; J2765; Q9967